=== PATIENT | female | born 1950 | race Caucasian/White ===

== ENCOUNTER 2020-07-07 08:48 | Day surgery (SDC) | payer OTHER, SELFPAY ==
[~2020-07-07] VITALS: Ht 165.1 cm; Wt 64.0 kg
[2020-07-07] MEDS ORDERED: diphenhydrAMINE 50 MG/ML VIAL ONE (10:36)
[2020-07-07] MEDS ORDERED: fentaNYL citrate 0.05 MG/ML VIAL ONE (10:36)
[2020-07-07] MEDS ORDERED: MIDAZOLAM 5 MG/5 ML VIAL ONE (10:37)
[2020-07-07] MEDS ORDERED: LIDOCAINE 2% 100 MG/5 ML UJET TP ONE (10:37)
[2020-07-07] MEDS ORDERED: SIMETHICONE 40 MG/0.6 ML ONE (11:50)
[2020-07-07] MEDS ORDERED: fentaNYL citrate 0.05 MG/ML VIAL IVP ONE (12:40)
[2020-07-07] MEDS ORDERED: MIDAZOLAM 2 MG/2 ML VIAL IVP ONE (12:40)
== END 2020-07-07 12:45 | disposition home or self-care (01) ==
LOC: MDS 08:48 → MMU 08:49 → MDS 12:45
PROVIDERS: ATTEND Internal Medicine Gastroenterology
DX: R10.9 Unspecified abdominal pain (principal); K56.699 Other intestinal obstruction unspecified as to partial versus complete obstruction; K57.30 Diverticulosis of large intestine without perforation or abscess without bleeding; Z20.828 Contact with and (suspected) exposure to other viral communicable diseases; Z79.899 Other long term (current) drug therapy
CPT/HCPCS: 45378; J2250; J3010; U0003; J1200

== ENCOUNTER 2023-09-06 07:07 | Day surgery (SDC) | payer OTHER ==
[~2023-09-06] VITALS: Ht 165.1 cm; Wt 66.2 kg
[2023-09-06] MEDS ORDERED: CONJUGATED ESTROGENS VAG CREAM 42 GM TUBE VG SCH (09:00)
[2023-09-06] MEDS ORDERED: ceFAZolin 2,000 MG VIAL ONE (09:07)
[2023-09-06] MEDS ORDERED: fentaNYL citrate 0.05 MG/ML VIAL ONE (09:20)
[2023-09-06] MEDS ORDERED: ONDANSETRON 4 MG/2 ML VIAL ONE (09:21)
[2023-09-06] MEDS ORDERED: DEXAMETHASONE 4 MG/ML VIAL ONE (09:21)
[2023-09-06] MEDS ORDERED: MIDAZOLAM 2 MG/2 ML VIAL ONE (09:21)
[2023-09-06] MEDS ORDERED: ROCURONIUM 50 MG/5 ML VIAL IV ONE (09:21)
[2023-09-06] MEDS ORDERED: SUCCINYLCHOLINE CHLORIDE 200 MG/10 ML VIAL IVP ONE (09:22)
[2023-09-06] MEDS ORDERED: PROPOFOL 200 MG/20 ML VIAL IV ONE (09:22)
[2023-09-06] MEDS: LIDOCAINE/EPI 1% 1:100000 20 ML VIAL INJ ONE (09:42)
[2023-09-06] MEDS: BUPIVACAINE-MPF 0.25% 30 ML VIAL INJ ONE (09:42)
[2023-09-06] MEDS ORDERED: SUGAMMADEX SODIUM 200 MG/2 ML VIAL IV ONE (10:16)
[2023-09-06] MEDS ORDERED: HYDROmorphone 1 MG/ML AMP IVP PRN (11:45)
[2023-09-06] MEDS ORDERED: ONDANSETRON 4 MG/2 ML VIAL IVP PRN (11:45)
[2023-09-06] MEDS ORDERED: MEPERIDINE 25 MG/ML SYR IVP PRN (11:45)
[2023-09-06] MEDS ORDERED: diphenhydrAMINE 50 MG/ML VIAL IVP PRN (11:45)
[2023-09-06] MEDS ORDERED: LACTATED RINGERS 1,000 ML IV SCH (11:45)
== END 2023-09-06 14:30 | disposition home or self-care (01) ==
LOC: MDS 07:07 → MMU 07:09 → MDS 14:30
PROVIDERS: ATTEND Obstetrics & Gynecology
DX: N39.3 Stress incontinence (female) (male) (principal); N81.2 Incomplete uterovaginal prolapse; M19.90 Unspecified osteoarthritis, unspecified site; Z98.890 Other specified postprocedural states; Z79.899 Other long term (current) drug therapy
CPT/HCPCS: 36415; 57260; 57288; 71045; 86886; 86900; 86901; 88302; 93005; A4565; C1763; J0330; J1100; J2001; J2250; J2405; J2704; J3010; J3490; J7030; J0690; J7060